=== PATIENT | male | born 1975 | race Caucasian/White ===

== ENCOUNTER 2023-10-22 13:26 | Emergency (ER) | payer BC, SELFPAY ==
[2023-10-22 13:27] VITALS: BP 129/89; PULSE 93; RESP 14; TEMP 36.6; O2SAT 97; BMI 21.0
--- NOTE | 2023-10-22 13:45 | EX.ED.VIS.EY ---
HPI History of Present Illness Chief Complaint: Eye Problem Informant: patient Onset/Context/Timing Location: Left Eye Narrative Narrative: Patient presents due to concern for retained foreign body in the left eye. He got a piece of hot metal in his left eye a couple hours ago. He believes he got everything out but wanted to check to be sure. Apparently the eye was red and irritated initially and that is calm down. He does not have any foreign body sensation. He wears glasses as needed but was not wearing them at the time of the injury. [facility] Medical History Diverticula of intestine Epilepsy Home Medications levetiracetam 750 mg tablet 750 mg PO BID 10/22/23 [History Last Taken Unknown] Allergy/AdvReac Type Severity Reaction Status Date / Time No Known Allergies Allergy Verified 10/22/23 13:27 Social History Smoking Status: Current every day smoker tobacco type: cigarettes and e-cigarettes ROS ROS ED Constitutional Constitutional ED: Denies fever(s) Eyes Eyes: Denies blurry vision ENT ENT ED: Denies rhinorrhea or sore throat Cardiovascular Cardiovascular: Denies chest pain Respiratory/Chest Respiratory/Chest: Denies cough Neurologic Neurologic: Denies headache(s) Psychiatric Psychiatric: Denies anxiety or depression EXAM Physical Exam Const Vital Signs: 10/22/23 13:27 Temperature 98 F Temperature Source Temporal Pulse Rate 93 Respiratory Rate 14 Blood Pressure 129/89 H Blood Pressure Mean 102 Pulse Ox 97 Oxygen Delivery Method Room Air Positive well nourished and well developed General Appearance ED: well developed HEENT atraumatic Eyes Eyes Narrative: No eye injection or tearing. No periorbital edema or erythema. Resp normal respiratory effort Cardio regular rate and regular rhythm GI non-tender Palpation: soft Extremity normal to inspection Neuro oriented x3 MDM MDM MDM Narrative Medical decision making narrative: Slit-lamp examination performed at bedside. Both eyes are examined. No evidence of foreign body noted at this time. With known foreign body that was successfully removed, I will cover him with gentamicin ophthalmic drops to help prevent infection. He will be referred to ophthalmology if he develops any problems. Patient comfortable with the plan. Discharge Plan Triage Chief Complaint: Eye Problem ED Provider: Gannon,Bernice Dx/Rx/DC Orders Clinical Impression: Corneal foreign body Instructions: ED Corneal Foreign Body, Removed Prescriptions: No Action levetiracetam 750 mg tablet 750 mg PO BID Primary Care Provider: U Referrals: U [Other] Wilfredo Connolly MD [Med Staff - Active Staff] - As Needed Activity Restrictions/Additional Instructions: Use 2 drops gentamicin to left eye every 6 hours for the next 3 days. Disposition Disposition: Home, Self Care
[2023-10-22] MEDS: Gentamicin Sulfate 1 OPTH.BTL 2 DRP LEFT EYE (13:52)
== END 2023-10-22 13:55 | disposition home or self-care (01) ==
PROVIDERS: Emergency Provider Emergency Medicine; PCP Family Medicine; Visit Provider Emergency Medicine
DX: T15.02XA Foreign body in cornea, left eye, initial encounter (principal); F17.210 Nicotine dependence, cigarettes, uncomplicated; F17.290 Nicotine dependence, other tobacco product, uncomplicated; Z79.899 Other long term (current) drug therapy; X58.XXXA Exposure to other specified factors, initial encounter
CPT/HCPCS: 99282